=== PATIENT | male | born 1975 | race Caucasian/White ===

== ENCOUNTER 2017-03-10 21:07 | Emergency (ER) | payer MEDICAID ==
[~2017-03-10] VITALS: Ht 180.3 cm; Wt 90.7 kg
[2017-03-10 21:35] VITALS: BP_SYST 169
[2017-03-10] MEDS ORDERED: OFLOXACIN 0.3%, 5 ML EAR DROPS OT SCH (22:00)
[2017-03-10] MEDS ORDERED: KETOROLAC TROMETHAMINE 60 MG/2 ML VIAL IM ONE (22:00)
[2017-03-10 22:20] VITALS: BP_SYST 158
== END 2017-03-10 22:20 | disposition home or self-care (01) ==
LOC: SED 21:07
DX: H60.502 Unspecified acute noninfective otitis externa, left ear (principal); E11.9 Type 2 diabetes mellitus without complications
CPT/HCPCS: 96372; 99283; J1885

== ENCOUNTER 2018-02-03 12:40 | Emergency (ER) | payer MEDICAID, OTHER ==
[~2018-02-03] VITALS: Ht 180.3 cm; Wt 89.8 kg
[2018-02-03 13:19] VITALS: BP_SYST 131
[2018-02-03] MEDS ORDERED: ceFAZolin SODIUM 1 GM VIAL IM ONE (13:30)
[2018-02-03] MEDS ORDERED: IBUPROFEN 800 MG TABLET PO ONE (13:30)
[2018-02-03] MEDS ORDERED: BACITRACIN 1 GM OINT TP ONE (13:45)
[2018-02-03] MEDS ORDERED: DIPH-TET-PERTUS Vaccine 0.5 ML VIAL (ADACEL) I.M. ONE (13:45)
[2018-02-03 14:46] VITALS: BP_SYST 128
== END 2018-02-03 14:46 | disposition home or self-care (01) ==
LOC: SED 12:40
DX: S90.812A Abrasion, left foot, initial encounter (principal); L03.116 Cellulitis of left lower limb; R03.0 Elevated blood-pressure reading, without diagnosis of hypertension; E11.9 Type 2 diabetes mellitus without complications; F17.200 Nicotine dependence, unspecified, uncomplicated; W19.XXXA Unspecified fall, initial encounter; Y93.89 Activity, other specified; Y92.89 Other specified places as the place of occurrence of the external cause; Y99.8 Other external cause status
CPT/HCPCS: 73610; 90471; 90715; 96372; 99284; J0690